=== PATIENT | female | born 1950 | race Caucasian/White ===

== ENCOUNTER 2016-09-25 05:34 | Day surgery (SDC) | payer OTHER, BC ==
[~2016-09-25] VITALS: Ht 162.6 cm; Wt 97.0 kg
[~2016-09-25 05:34] MED LIST: AMBIEN5 MG PO; ATORVASTATIN CA20 MG PO; CRESTOR5 MG PO; DIOVAN HCT 11 TABLET PO; NORVASC5 MG PO; WELLBUTRIN XL150 MG PO; WELLBUTRIN XL300 MG PO; ZYRTEC10 M3 PO
[2016-09-25] MEDS ORDERED: MOTRIN600 MG PO (06:25)
[2016-09-25] MEDS ORDERED: ASPIRIN325 MG PO (06:30)
[2016-09-25 06:35] VITALS: BP 162/90
[2016-09-25] MEDS ORDERED: IBUPROFEN800 MG PO (08:33)
[2016-09-25] MEDS ORDERED: OXYCODONE-APAP1 EACH PO (08:33)
[2016-09-25 11:44] VITALS: BP 172/67
[2016-09-25 12:44] VITALS: BP 129/71
[2016-09-25 14:45] VITALS: BP 143/73
== END 2016-09-25 15:08 | disposition home or self-care (01) ==
LOC: SDC 05:34
DX: N95.0 Postmenopausal bleeding (principal); N85.01 Benign endometrial hyperplasia; N72 Inflammatory disease of cervix uteri; I10 Essential (primary) hypertension; F32.9 Major depressive disorder, single episode, unspecified; Z88.8 Allergy status to other drugs, medicaments and biological substances; Z82.49 Family history of ischemic heart disease and other diseases of the circulatory system; Z83.49 Family history of other endocrine, nutritional and metabolic diseases; Z82.3 Family history of stroke; Z80.8 Family history of malignant neoplasm of other organs or systems
CPT/HCPCS: 88307; J0330; J0690; J1100; J1170; J2405; J2710; J3010

== ENCOUNTER 2018-03-18 13:16 | Inpatient (IN) | payer OTHER, BC ==
[~2018-03-18] VITALS: Ht 160 cm; Wt 91.9 kg
[~2018-03-18 13:16] MED LIST changes: +ASPIRIN325 MG PO; +IBUPROFEN800 MG PO; +MOTRIN600 MG PO; +OXYCODONE-APAP1 EACH PO
[2018-03-18 14:15] LABS: HEMATOCRIT 35.9 % (36.0-46.0); HEMOGLOBIN 12.1 G/DL (11.9-15.5); MCHC 33.7 G/DL (30.0-36.0); MCV 86.1 FL (83-99); PLATELET COUNT 217 K/uL (156-360); RBC DIS.WIDTH-CV 13.1 % (11.8-14.6); RBC DIS.WIDTH-SD 41.3 % (39-53); RED BLOOD COUNT 4.17 M/uL (3.80-5.20); WHITE BLOOD COUNT 9.6 K/uL (4.1-10.2)
[2018-03-18 14:26] LABS: ALBUMIN 3.8 g/dL (3.2-4.8)
[2018-03-18 14:27] LABS: CHLORIDE 103 mEq/L (99-109); SODIUM 138 mEq/L (136-147)
[2018-03-18 14:29] LABS: GLUCOSE 114 mg/dL (70-99); TOTAL PROTEIN 6.5 g/dL (6.4-8.3)
[2018-03-18 14:31] LABS: TOTAL BILIRUBIN 0.7 mg/dL (0.0-1.0)
[2018-03-18 14:32] LABS: ALKALINE PHOSPHATASE 95 IU/L (3-129)
[2018-03-18 14:33] LABS: CREATININE 0.8 mg/dL (0.6-1.3); GFR ESTIMATE (CALCULATED) > 59 mL/min/
[2018-03-18 14:34] LABS: AST (GOT) 11 IU/L (2-34); UREA NITROGEN (BUN) 15 mg/dL (9-23)
[2018-03-18 14:36] LABS: ALT (GPT) 12 IU/L (3-49); LIPASE 5 U/L (1.0-51.0)
[2018-03-18] MEDS ORDERED: MUCINEX D ER T1 EACH PO (16:43)
[2018-03-18] MEDS ORDERED: FLONASE16 G1 BOTH NARES (16:43)
[2018-03-18] MEDS ORDERED: COLACE100 MG PO (16:43)
[2018-03-18] MEDS ORDERED: ADVIL200 MG PO (16:43)
[2018-03-18] MEDS ORDERED: CYANOCOBALAM1000 MCG PO (16:44)
[2018-03-18] MEDS ORDERED: VITAMIN D31000 UNI2 PO (16:44)
[2018-03-18 19:50] VITALS: BP 116/81
[2018-03-18 23:16] LABS: APPEARANCE CLEAR ((CLEAR)); BILIRUBIN NEGATIVE; BLOOD NEGATIVE; COLOR YELLOW ((YELLOW)); GLUCOSE (STRIP) NEGATIVE; KETONES NEGATIVE; LEUKOCYTES NEGATIVE; NITRITE NEGATIVE; PROTEIN (STRIP) NEGATIVE; SPECIFIC GRAVITY 1.014 (1.000-1.030); UCUL ADDED? NO; UROBILINOGEN 0.2 MG/DL (0.2-1.0)
[2018-03-19 00:17] VITALS: BP 159/84
[2018-03-19 05:14] LABS: HEMOGLOBIN 10.3 G/DL (11.9-15.5); MCH 28.2 PG (29.0-34.0); MCHC 32.2 G/DL (30.0-36.0); MCV 87.7 FL (83-99); PLATELET COUNT 194 K/uL (156-360); RBC DIS.WIDTH-CV 13.2 % (11.8-14.6); RBC DIS.WIDTH-SD 42.6 % (39-53); RED BLOOD COUNT 3.65 M/uL (3.80-5.20); WHITE BLOOD COUNT 6.9 K/uL (4.1-10.2)
[2018-03-19 05:41] LABS: CHLORIDE 105 MEQ/L (99-109); CREATININE 0.7 MG/DL (0.6-1.3); GFR ESTIMATE (CALCULATED) > 59 mL/min/; GLUCOSE 106 mg/dL (70-99); SODIUM 141 MEQ/L (136-147); UREA NITROGEN (BUN) 10 mg/dL (9-23)
[2018-03-19 07:18] VITALS: BP 114/56
[2018-03-19 15:31] VITALS: BP 102/69
[2018-03-19 15:58] LABS: HEMATOCRIT 34.5 % (36.0-46.0); HEMOGLOBIN 11.4 G/DL (11.9-15.5)
[2018-03-19 23:36] VITALS: BP 125/64
[2018-03-20 05:55] LABS: HEMATOCRIT 31.3 % (36.0-46.0); HEMOGLOBIN 10.2 G/DL (11.9-15.5); MCH 28.4 PG (29.0-34.0); MCHC 32.6 G/DL (30.0-36.0); MCV 87.2 FL (83-99); PLATELET COUNT 184 K/uL (156-360); RBC DIS.WIDTH-CV 12.9 % (11.8-14.6); RBC DIS.WIDTH-SD 41.1 % (39-53); RED BLOOD COUNT 3.59 M/uL (3.80-5.20); WHITE BLOOD COUNT 7.6 K/uL (4.1-10.2)
[2018-03-20 07:52] VITALS: BP 124/75
[2018-03-20 15:42] VITALS: BP 124/64
[2018-03-20 21:36] LABS: C DIFF TOXIN ND (NEGATIVE)
[2018-03-20 23:46] VITALS: BP 146/81
[2018-03-21 07:25] VITALS: BP 144/73
[2018-03-21 12:01] VITALS: BP 139/67
[2018-03-21 15:38] VITALS: BP 129/79
[2018-03-21 20:00] VITALS: BP 137/65
[2018-03-21 23:54] VITALS: BP 150/101
[2018-03-22 00:14] VITALS: BP 133/67
[2018-03-22 05:36] LABS: BASOPHIL (%) 0.5 % (0-1); EOSINOPHIL (%) 3.1 % (0-5); EOSINOPHIL COUNT 0.2 K/uL (0-0.3); HEMATOCRIT 32.3 % (36.0-46.0); HEMOGLOBIN 10.5 G/DL (11.9-15.5); IMMATURE GRANULOCYTE (%) 0.6 % (0.0-0.7); LYMPHOCYTE (%) 17.2 % (15-42); LYMPHOCYTE COUNT 1.1 K/uL (1.0-2.8); MCH 28.4 PG (29.0-34.0); MCHC 32.5 G/DL (30.0-36.0); MCV 87.3 FL (83-99); MONOCYTE (%) 6.9 % (3-12); MONOCYTE COUNT 0.4 K/uL (0-0.8); NEUTROPHIL (%) 71.7 % (45-76); NEUTROPHIL COUNT 4.6 K/uL (1.8-6.4); PLATELET COUNT 225 K/uL (156-360); RBC DIS.WIDTH-CV 13.1 % (11.8-14.6); RBC DIS.WIDTH-SD 41.6 % (39-53); WHITE BLOOD COUNT 6.4 K/uL (4.1-10.2)
[2018-03-22 06:09] LABS: ALBUMIN 3.4 G/DL (3.2-4.8); ALKALINE PHOSPHATASE 75 IU/L (3-129); ALT (GPT) 49 IU/L (3-49); AST (GOT) 75 IU/L (2-34); CHLORIDE 101 MEQ/L (99-109); CREATININE 0.8 MG/DL (0.6-1.3); GFR ESTIMATE (CALCULATED) > 59 mL/min/; GLUCOSE 104 mg/dL (70-99); POTASSIUM 3.7 MEQ/L (3.7-5.4); SODIUM 139 MEQ/L (136-147); TOTAL BILIRUBIN 0.4 MG/DL (0.0-1.0); TOTAL PROTEIN 5.2 G/DL (6.4-8.3); UREA NITROGEN (BUN) 10 mg/dL (9-23)
[2018-03-22 08:11] VITALS: BP 132/65
[2018-03-22] MEDS ORDERED: LEVOFLOXACIN750 MG PO (11:59)
[2018-03-22] MEDS ORDERED: HYDROCHLOROTH12.5 M3 PO (12:00)
[2018-03-22] MEDS ORDERED: METRONIDAZOLE500 MG PO (12:00)
[2018-03-22] MEDS ORDERED: ZOFRAN ODT4 MG PO (12:07)
== END 2018-03-22 13:36 | disposition home or self-care (01) | DRG 391 ==
LOC: EME 13:16 → EDOF 16:34 → 5SOUTH 16:34 → ENRESERV 16:35 → 5SOUTH 19:33
PROVIDERS: Emergency Medicine; Family Medicine; Physician Assistant; Physician Assistant Medical
DX: K57.32 Diverticulitis of large intestine without perforation or abscess without bleeding (principal); J69.0 Pneumonitis due to inhalation of food and vomit; I10 Essential (primary) hypertension; E78.5 Hyperlipidemia, unspecified; E66.9 Obesity, unspecified; D64.9 Anemia, unspecified; Z68.35 Body mass index [BMI] 35.0-35.9, adult
CPT/HCPCS: 71046; 74176; 80048; 80053; 81003; 83605; 83690; 85014; 85018; 85025; 85027; 87040; 87493; 87506; 92610 GN; 94010; 94640; 99202; 99281; 99285; J0696; J0744; J1650; J1956; J2405; J2765; J3010; J7030; S0030